=== PATIENT | female | born 1935 | race African-American/Black ===

== ENCOUNTER 2016-06-14 15:42 | Inpatient (IN) | payer MEDICARE, OTHER ==
[~2016-06-14] VITALS: Ht 160 cm; Wt 57.7 kg
[~2016-06-14 15:42] MED LIST: AMLO-511 PO; ASPI-556 PO; ATOR40TA28 PO; BIDIL PO; CARV25TA32 PO; CHL25 PO; CLON0.3T PO; CLOP75 PO; FAMO20 PO; FERR-89 PO; GLIP10 PO; NITR.4 SL; VALS160T2 PO; VITAD1000 PO
[2016-06-14 16:07] LABS: GLUCOSE,POINT OF CARE 74 MG/DL (70-110)
[2016-06-14 16:36] LABS: BASOPHILS % (AUTO) 0.1 % (0.0-2.0); EOSINOPHILS % (AUTO) 3.8 % (1.0-6.0); HEMATOCRIT 33.5 % (36-46); HEMOGLOBIN 10.7 g/dL (12.0-16.0); LYMPHOCYTES % (AUTO) 14.8 % (22.0-44.0); MEAN CORPUSCULAR HEMOGLOBIN 28.8 pg (26.0-34.0); MEAN CORPUSCULAR VOLUME 90 fL (80-100); MONOCYTES # (AUTO) 0.6 K/uL (0.1-1.0); MONOCYTES % (AUTO) 8.5 % (2.0-9.0); NEUTROPHILS # (AUTO) 5.1 K/uL (1.8-7.7); NEUTROPHILS % (AUTO) 72.8 % (40.0-70.0); PLATELET COUNT (AUTO) 226 K/uL (150-450); RED BLOOD CELL COUNT(AUTO) 3.72 MIL/uL (4.00-5.20); RED CELL DISTRIBUTION WIDTH 13.4 % (11.5-14.5)
[2016-06-14 16:46] LABS: CALCIUM, TOTAL 9.2 mg/dL (8.8-10.5); CREATININE 1.67 mg/dL (0.60-1.30); POTASSIUM 3.6 mmol/L (3.5-5.1)
[2016-06-14] MEDS ORDERED: LIRA0.6P SQ (16:49)
[2016-06-14 16:53] LABS: BILIRUBIN,TOTAL 0.5 mg/dL (0.1-1.0); TOTAL PROTEIN, SERUM 6.8 g/dL (6.4-8.2)
[2016-06-14 17:12] LABS: GLUCOSE,POINT OF CARE 79 MG/DL (70-110)
[2016-06-14] MEDS ORDERED: ONDANSETRON HCL 4 MG/2 ML VIAL IVP PRN (17:15)
[2016-06-14 18:37] LABS: GLUCOSE COMMENT 1 Repeated; GLUCOSE,POINT OF CARE 71 MG/DL (70-110)
[2016-06-14] MEDS ORDERED: INSULIN ASPART 100 UNITS/ML SQ PRN (20:45)
[2016-06-14 20:52] VITALS: BP 139/64
[2016-06-14 21:32] LABS: GLUCOSE COMMENT 1 Repeated; GLUCOSE,POINT OF CARE 47 MG/DL (70-110)
[2016-06-14 21:36] LABS: GLUCOSE COMMENT 1 Juice/Food/D50 Given; GLUCOSE,POINT OF CARE 45 MG/DL (70-110)
[2016-06-14] MEDS: ATORVASTATIN CALCIUM 20 MG TABLET PO SCH (22:00)
[2016-06-14] MEDS: DOCUSATE SODIUM 100 MG CAPSULE PO SCH (22:01)
[2016-06-14] MEDS: HEPARIN SODIUM,PORCINE 5,000 UNITS/ML VIAL SQ SCH (22:01)
[2016-06-14] MEDS: DEXTROSE 50%-WATER 25 GM/50 ML SYRINGE IVP PRN (22:35)
[2016-06-14 23:01] LABS: GLUCOSE COMMENT 1 Juice/Food/D50 Given; GLUCOSE,POINT OF CARE 35 MG/DL (70-110)
[2016-06-14 23:22] LABS: GLUCOSE,POINT OF CARE 121 MG/DL (70-110)
[2016-06-15] MEDS: DEXTROSE 50%-WATER 25 GM/50 ML SYRINGE IVP PRN ×4 (01:58→12:25)
[2016-06-15 02:12] LABS: GLUCOSE COMMENT 1 Juice/Food/D50 Given; GLUCOSE,POINT OF CARE 27 MG/DL (70-110)
[2016-06-15] MEDS ORDERED: DEXTROSE 5%-0.45% SODIUM CHL 500 ML IV ONE (02:15)
[2016-06-15] MEDS ORDERED: DEXTROSE 5%-0.45% SODIUM CHL 1,000 ML IV ONE (02:15)
[2016-06-15 02:36] LABS: GLUCOSE,POINT OF CARE 73 MG/DL (70-110)
[2016-06-15 04:07] LABS: GLUCOSE COMMENT 1 Doctor Notified; GLUCOSE,POINT OF CARE 30 MG/DL (70-110)
[2016-06-15] MEDS ORDERED: DEXTROSE 10%-WATER 1,000 ML IV ONE (04:15)
[2016-06-15 04:36] VITALS: BP 160/77
[2016-06-15 04:42] LABS: GLUCOSE,POINT OF CARE 102 MG/DL (70-110)
[2016-06-15 05:56] LABS: GLUCOSE COMMENT 1 Doctor Notified; GLUCOSE,POINT OF CARE 45 MG/DL (70-110)
[2016-06-15 07:12] LABS: GLUCOSE,POINT OF CARE 89 MG/DL (70-110)
[2016-06-15 08:14] VITALS: BP 144/56
[2016-06-15] MEDS: DOCUSATE SODIUM 100 MG CAPSULE PO SCH ×2 (08:33→20:31)
[2016-06-15] MEDS: CLOPIDOGREL BISULFATE 75 MG TABLET PO SCH (08:33)
[2016-06-15] MEDS: HEPARIN SODIUM,PORCINE 5,000 UNITS/ML VIAL SQ SCH ×2 (08:33→20:31)
[2016-06-15] MEDS: PANTOPRAZOLE SODIUM 40 MG DR TABLET PO SCH (08:33)
[2016-06-15] MEDS: ASPIRIN 81 MG CHEWABLE TABLET PO SCH (08:33)
[2016-06-15 09:12] LABS: GLUCOSE COMMENT 1 Repeated; GLUCOSE,POINT OF CARE 55 MG/DL (70-110)
[2016-06-15 09:12] LABS: GLUCOSE,POINT OF CARE 75 MG/DL (70-110)
[2016-06-15 11:41] VITALS: BP 165/73
[2016-06-15 11:52] LABS: GLUCOSE,POINT OF CARE 55 MG/DL (70-110)
[2016-06-15 13:12] LABS: GLUCOSE,POINT OF CARE 121 MG/DL (70-110)
[2016-06-15 13:12] LABS: GLUCOSE COMMENT 1 Juice/Food/D50 Given; GLUCOSE,POINT OF CARE 58 MG/DL (70-110)
[2016-06-15 16:28] VITALS: BP 156/63
[2016-06-15 16:57] LABS: GLUCOSE,POINT OF CARE 98 MG/DL (70-110)
[2016-06-15 19:43] VITALS: BP 148/60
[2016-06-15] MEDS: ATORVASTATIN CALCIUM 20 MG TABLET PO SCH (20:31)
[2016-06-15 22:37] LABS: GLUCOSE,POINT OF CARE 109 MG/DL (70-110)
[2016-06-15 23:22] LABS: GLUCOSE,POINT OF CARE 126 MG/DL (70-110)
[2016-06-15 23:38] VITALS: BP 142/65
[2016-06-16 04:32] LABS: GLUCOSE,POINT OF CARE 134 MG/DL (70-110)
[2016-06-16 04:37] VITALS: BP 154/61
[2016-06-16 06:45] LABS: CREATININE 1.52 mg/dL (0.60-1.30); POTASSIUM 4.2 mmol/L (3.5-5.1)
[2016-06-16 07:30] VITALS: BP 159/81
[2016-06-16] MEDS: PANTOPRAZOLE SODIUM 40 MG DR TABLET PO SCH (08:08)
[2016-06-16] MEDS: DOCUSATE SODIUM 100 MG CAPSULE PO SCH (08:08)
[2016-06-16] MEDS: ASPIRIN 81 MG CHEWABLE TABLET PO SCH (08:08)
[2016-06-16] MEDS: CLOPIDOGREL BISULFATE 75 MG TABLET PO SCH (08:08)
[2016-06-16] MEDS: HEPARIN SODIUM,PORCINE 5,000 UNITS/ML VIAL SQ SCH (08:11)
[2016-06-16 11:10] VITALS: BP 167/64
[2016-06-16 12:22] LABS: GLUCOSE,POINT OF CARE 136 MG/DL (70-110)
== END 2016-06-16 15:52 | disposition home or self-care (01) | DRG 638 ==
LOC: EMS 15:45 → 6N 18:16
PROVIDERS: ADMIT Internal Medicine; ATTEND Internal Medicine
DX: E11.649 Type 2 diabetes mellitus with hypoglycemia without coma (principal); E44.0 Moderate protein-calorie malnutrition; K21.9 Gastro-esophageal reflux disease without esophagitis; E78.00 Pure hypercholesterolemia, unspecified; I25.10 Atherosclerotic heart disease of native coronary artery without angina pectoris; I12.9 Hypertensive chronic kidney disease with stage 1 through stage 4 chronic kidney disease, or unspecified chronic kidney disease; E11.22 Type 2 diabetes mellitus with diabetic chronic kidney disease; D63.8 Anemia in other chronic diseases classified elsewhere; E55.9 Vitamin D deficiency, unspecified; N18.3 Chronic kidney disease, stage 3 (moderate); Z95.5 Presence of coronary angioplasty implant and graft; Z88.6 Allergy status to analgesic agent; Z88.0 Allergy status to penicillin; Z88.2 Allergy status to sulfonamides; Z79.899 Other long term (current) drug therapy; Z79.82 Long term (current) use of aspirin; Z79.02 Long term (current) use of antithrombotics/antiplatelets; Z79.84 Long term (current) use of oral hypoglycemic drugs
CPT/HCPCS: 82948; 82962; 99285; J1644